=== PATIENT | female | born 1975 | race Caucasian/White ===

== ENCOUNTER 2018-12-15 20:11 | Outpatient (REF) | payer OTHER, SELFPAY ==
[2018-12-19 15:47] LABS: Chlamydia Result Negative; GC Result Negative; Specimen Description URINE
[2018-12-19 16:29] LABS: HIV-1/2 Ag & Ab Screen Negative (NEGAT)
== END 2018-12-15 20:31 ==
LOC: NCHCN 20:11
PROVIDERS: PCP Nurse Practitioner Family; Visit Provider Registered Nurse
DX: Z11.4 Encounter for screening for human immunodeficiency virus [HIV] (principal); Z11.3 Encounter for screening for infections with a predominantly sexual mode of transmission
CPT/HCPCS: 87389; 87491; 87591

== ENCOUNTER 2019-10-30 15:15 | Outpatient (REF) | payer OTHER, SELFPAY ==
[2019-11-02 13:37] LABS: Patient Race White; SARS-CoV-2 RNA Undetected (Undetected); SARS-CoV-2 Specimen Source Nasopharynx
== END 2019-10-30 15:35 ==
LOC: NCHCN 15:15
PROVIDERS: PCP Nurse Practitioner Family; Visit Provider Registered Nurse
DX: R05 Cough (principal)
CPT/HCPCS: U0003

== ENCOUNTER 2019-12-21 22:15 | Outpatient (REF) | payer OTHER, SELFPAY ==
[2019-12-21 21:18] LABS: Bacteria Few HPF (Negative); C & S Indicated? C&S Done As Ordered; Casts 5-10 Hyaline LPF (Negative); Crystals Negative HPF (Negative); Epithelial Cells Many HPF (Negative); Mucus Heavy (Negative); RBC 0-2 HPF (0-2); WBC 0-2 HPF (0-5)
[2019-12-21 21:29] LABS: Abs Immature Grans 0.02 10^3/uL (0.0-0.06); Absolute Basophil Count 0.05 10^3/uL (0.0-0.2); Absolute Eosinophil Count 0.11 10^3/uL (0.0-0.7); Absolute Lymphocyte Count 2.75 10^3/uL (1.2-3.4); Absolute Monocyte Count 0.62 10^3/uL (0.1-0.8); Absolute Neutrophil Count 5.15 10^3/uL (1.2-6.7); Basophils % 0.6; Eosinophils % 1.3; HCT 39.8 % (36.0-46.0); HGB 13.4 g/dL (11.2-15.7); Immature Grans % 0.2; Lymphocytes % 31.6; MCH 29.8 pg (27.0-33.0); MCHC 33.7 % (32.0-36.0); MCV 88.4 fL (80-95); MPV 9.4 fL (8.0-11.0); Monocytes % 7.1; Neutrophils % 59.2; Nucleated RBC 0 %; Platelet Count 389 10^3/uL (130-400); RDW 12.9 % (11.7-14.6); RDW-SD 42.4 fL
[2019-12-21 22:01] LABS: ALT 18 U/L (14-59); AST 16 U/L (15-37); Albumin 4.3 g/dL (3.4-5.0); Alkaline Phosphatase 44 U/L (46-116); Anion Gap 8.5 mmol/L (3-11); BUN 19 mg/dL (7-18); Bilirubin, Total 0.3 mg/dL (0.2-1.0); CO2 26.5 mmol/L (21.0-32.0); CREATININE 0.87 mg/dL (0.55-1.02); Calcium 9.1 mg/dL (8.5-10.1); Chloride 103 mmol/L (98-107); Glucose 76 mg/dL (74-106); Sodium 138 mmol/L (136-145); TSH (W/Ref FT4) 0.74 uIU/mL (0.36-3.74); Total Protein 7.2 g/dL (6.4-8.2)
== END 2019-12-21 22:35 ==
LOC: NCHCN 22:15
PROVIDERS: PCP Nurse Practitioner Family; Visit Provider Nurse Practitioner Family
DX: K59.00 Constipation, unspecified (principal); R10.9 Unspecified abdominal pain
CPT/HCPCS: 80053; 81015; 84443; 85025; 87086

== ENCOUNTER 2021-01-22 12:00 | Outpatient (REF) | payer OTHER, SELFPAY ==
[2021-01-24 09:56] LABS: HIV-1/2 Ag & Ab Screen Negative (Negative)
[2021-01-26 16:07] LABS: Chlamydia Result Negative (Negative); GC Result Negative (Negative)
== END 2021-01-22 12:01 | disposition home or self-care (01) ==
LOC: LBN 12:00
PROVIDERS: PCP Nurse Practitioner Family; Visit Provider Registered Nurse
DX: Z11.3 Encounter for screening for infections with a predominantly sexual mode of transmission (principal); Z11.4 Encounter for screening for human immunodeficiency virus [HIV]
CPT/HCPCS: 87389; 87491; 87591

== ENCOUNTER 2022-01-30 15:48 | Outpatient (REF) | payer BC, SELFPAY ==
[2022-01-30 21:15] LABS: BUN 15 mg/dL (7-18); CREATININE 0.8 mg/dL (0.55-1.02); Calcium 9.4 mg/dL (8.5-10.1); Calculated LDL 96 mg/dL (<100); Chloride 101 mmol/L (98-107); Cholesterol 191 mg/dL (<200); Estimated GFR 90.83 (mL/min/1.73m2); Glucose 78 mg/dL (74-106); HDL Cholesterol 76 mg/dL (40-60); Potassium 3.8 mmol/L (3.5-5.1); Sodium 138 mmol/L (136-145); Triglyceride 97 mg/dL (<150)
[2022-02-02 10:27] LABS: Hepatitis C Ab w Rflx HCV PCR Negative (Negative)
[2022-02-02 13:52] LABS: Chlamydia Result Negative (Negative); GC Result Negative (Negative)
== END 2022-01-30 15:49 | disposition home or self-care (01) ==
LOC: NCHCN 15:48
PROVIDERS: PCP Nurse Practitioner Family; Visit Provider Registered Nurse
DX: Z00.00 Encounter for general adult medical examination without abnormal findings (principal); E66.3 Overweight; Z11.3 Encounter for screening for infections with a predominantly sexual mode of transmission; Z13.220 Encounter for screening for lipoid disorders; Z11.59 Encounter for screening for other viral diseases
CPT/HCPCS: 80048; 80061; 86803; 87491; 87591

== ENCOUNTER 2024-02-27 09:47 | Emergency (ER) | payer OTHER, SELFPAY ==
[2024-02-27 09:56] VITALS: BP 135/80; PULSE 79; RESP 16; TEMP 36.8; O2SAT 98
--- NOTE | 2024-02-27 10:02 | ED.GENADUL_ITS ---
Discharge Plan Disposition Patient Disposition: Home Condition: Good Discharge Details Clinical Impression: Finger laceration Primary Care Provider: Lisa Collazo ED Provider: Nelsy Pa Home Meds and New Rx's Prescriptions: No Action No Known Home Meds Discharge Instructions Instructions: Laceration Repair With Stitches ED Additional Instructions: Your laceration was cleansed and closed with sutures. As it is over the joints, I am concerned that if you flex the finger too much you may cause these to pop or tear. Please continue with the splint after removing the bulky dressing tomorrow. You may wash with running water and soap but please avoid soaking or long submersion's as this can increase your risk of infection. Please monitor for wounds for signs of infection including redness, warmth, drainage, increased pain, fever/chills. If you develop these or other new/worsening symptoms please seek care urgently once again. Tylenol and ibuprofen as needed for discomfort. Please have the wound reevaluated in 1 week for suture removal. You may have this completed here or with your primary care if you call and schedule appointment. Tetanus was updated here today. Referrals: Lisa Collazo [Primary Care Provider] - Discharge Data Discharge Date/Time-TO BE ENTERED AT DEPARTURE: 02/27/24 11:07 HPI General Date/Time Provider Initiated Documentation: 02/27/24 09:57 . Limitations to Documentation: no limitations . Information obtained by: patient, family () and RN notes reviewed . H istory of Present Illness 48 year old F presents to the emergency department with the chief complaint of laceration right middle finger, described as moderate, Quality is described as aching, Patient reports no radiation. Patient started experiencing this minute(s) and it has been constant. Immobilization improves symptom(s), Movement worsens symptoms . Patient notes no other symptoms.. Patient did receive the following treatments prior to arrival, none Related Data Home Medications ?Medication ?Instructions ?Recorded ?Confirmed Unknown [No Known Home Meds] 02/27/24 02/27/24 Allergies Allergy/AdvReac Type Severity Reaction Status Date / Time iodine Allergy Intermediate Skin Rash Unverified 02/27/24 09:58 codeine AdvReac Severe Cardiac Unverified 02/27/24 09:58 Dysrythmia fentanyl AdvReac extreme Unverified 02/27/24 09:58 vomiting, paresthesia hydromorphone HCl (From AdvReac extreme Unverified 02/27/24 09:58 Dilaudid) vomiting,paresthesia General Stated Complaint: Laceration CARLA: 4 Review of Systems Constitutional Constitutional: Reports as per HPI, Denies chills and Denies fever(s) Musculoskeletal Musculoskeletal: Reports as per HPI Integumentary/Breasts Skin/Breast: Reports as per HPI Neurologic Neurologic: Reports as per HPI, Denies sensory deficit and Denies paresthesias Exam Const General: cooperative, healthy appearing, comfortable, no acute distress and well developed Nutritional Appearance: average body habitus and well nourished Orientation: alert and awake Resp Effort & Inspection: normal respiratory effort, able to speak in complete sentences and no respiratory distress Cardio Rate: regular rate Rhythm: regular rhythm Skin Trauma: laceration (right middle finger) Neuro General: patient alert and patient awake Cognition: normal cognition Speech: speech normal Sensory Exam: no sensory deficits noted Extrem Hand/finger images: 2 1. Patient has a flap laceration. While fairly deep laceration, no tenderness or bony abnormalities or involvement with the wound. Patient has intact capillary refill. Intact sensation. 2+ distal pulses. No wounds elsewhere. While she does have some discomfort with range of motion, no loss of range of motion. Patient is able to extend against resistance at both the PIP and DIP joints. Course Vital Signs Vital signs: Vital Signs Temperature 36.8 C 02/27/24 09:56 Pulse 79 02/27/24 09:56 Respiratory Rate 16 02/27/24 09:56 Blood Pressure 135/80 02/27/24 09:56 Pulse Oximetry 98 02/27/24 09:56 Temperature 36.8 C 02/27/24 09:56 Pulse 79 02/27/24 09:56 Respiratory Rate 16 02/27/24 09:56 Blood Pressure 135/80 02/27/24 09:56 Pulse Oximetry 98 02/27/24 09:56 Oxygen Delivery Method Room Air 02/27/24 09:56 Oxygen Flow Rate 0 02/27/24 09:56 Pain Level 0 02/27/24 09:56 Procedure Laceration Laceration 1: Date of Procedure: 02/27/24 Time of procedure: 10:51 Provider that performed the procedure: Nelsy Roberson Time Out Performed: Yes Patient Consented: Verbally Site: hand Side (If applicable): right Description: flap Depth: simple, single layer Local anesthetic: Lidocaine 1% Amount of anesthesia used (mL): 9 Pre-repair:: wound explored, irrigated extensively and deep structures intact Skin layer closed with: nylon Size (cm): 5-0 Number of sutures:: 7 Technique: horizontal mattress and simple, interrupted Complications: None Medical Decision Making Patient is a pleasant 48-year-old [id number] female presenting today with chief complaint of laceration to the right middle finger. 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 States that this digit is intermittently numb and tingly associated with remote chronic injury from crush digit about 10 years ago. States that the sensation seems to be at her baseline with no worsening of this. Believes that her tetanus is due either this year or next year, will update today. Denies other injury at the time of the incident. On exam, patient has a flap laceration extending from the PIP to DIP on the dorsal side of the right index finger. She is able to flex and extend against resistance. Sensation seems to be intact. Intact capillary refill. Believe the patient will require sutures, I discussed the risk and benefits of a digital nerve block. Also discussed risk benefits and alternatives of suture closure, patient voices getting and wished to proceed. Please see procedure note. Patient tolerated this well. Wound was cleansed using sterile standard sterile technique. No foreign body or debris was appreciated. Wound was closed using simple interrupted and horizontal mattress stitches. She tolerated this well with a digital block on board. We discussed continued wound care. Bulky dressing was set in place over bacitracin. Do not see indication at this point for antibiotics. She will keep the current dressing on for the next 24 hours and then will apply Band-Aid and splint which was also provided for the patient. Strict return precautions were discussed, particular signs symptoms of infection. Given the patient's distance from the hospital, she may come back here for suture removal or alternatively follow-up with primary care which is more conveniently located. We discussed activity she should avoid such as soaking, I did encourage washing with running water and soap. All of her questions and concerns were addressed and patient is in agreement this plan. Tetanus was updated today. This documentation was generated using [employer] system, please disregard any oddities of phrase or misspellings. Quality:SDOH Health Related Social Needs: 2 No Data to Display PFSH All Active Problems (Updated 02/27/24 @ 10:54 by MILTON De La O) Finger laceration (Acute) Left lower quadrant pain (Acute) Surgical History (Updated 12/01/17 @ 14:34 by [employer] [place]) Ligation of fallopian tube Colonoscopy - IV Sedation (10/05/14) DR.TERRY EDMONDS Social History Smoking/Tobacco Use Status: Current every day Tobacco Type: cigarettes Smoking risk assessment performed?: Yes Alcohol Intake: current Alcohol Intake frequency: a few times a month Drug use: Never Substance use type: does not use Do you feel safe at home: Yes Do you feel safe in your relationship?: Yes
[2024-02-27] MEDS: Diph,Pertuss(Acell),Tet Vac/Pf 0.5 ML SYR IM (10:49)
[2024-02-27] MEDS: Lidocaine 1% Pres-Free 5 ML VIAL (10:51)
== END 2024-02-27 11:07 | disposition home or self-care (01) ==
LOC: ER 12:29
PROVIDERS: Emergency Provider Physician Assistant; PCP Nurse Practitioner Family
DX: S61.212A Laceration without foreign body of right middle finger without damage to nail, initial encounter (principal); Z23 Encounter for immunization; F17.210 Nicotine dependence, cigarettes, uncomplicated; W27.8XXA Contact with other nonpowered hand tool, initial encounter; Y93.G3 Activity, cooking and baking; Y92.010 Kitchen of single-family (private) house as the place of occurrence of the external cause
CPT/HCPCS: 12001; 90471; 90715; 99283; J2003

== ENCOUNTER 2024-09-13 09:37 | Outpatient (CLI) | payer OTHER, SELFPAY ==
[2024-09-13 09:59] LABS: Abs Immature Grans 0.02 10^3/uL (0.0-0.06); HCT 39.8 % (36.0-46.0); HGB 13.3 g/dL (11.2-15.7); Immature Grans % 0.3 %; MCH 29.5 pg (27.0-33.0); MCHC 33.4 % (32.0-36.0); MCV 88 fL (80-95); MPV 9.0 fL (8.0-11.0); Platelet Count 332 10^3/uL (130-400); RBC 4.51 10^6/uL (3.93-5.22); RDW 12.9 % (11.7-14.6); RDW-SD 41.9 fL; WBC 5.99 10^3/uL (4.4-10.8)
[2024-09-13 10:02] LABS: ESR 3 mm/hr (0-30)
[2024-09-13 10:54] LABS: ALT 23 U/L (14-59); AST 14 U/L (15-37); Albumin 3.9 g/dL (3.4-5.0); Alkaline Phosphatase 58 U/L (46-116); Anion Gap 5.7 mmol/L (3-11); BUN 11 mg/dL (7-18); Bilirubin, Total 0.4 mg/dL (0.2-1.0); CO2 31.3 mmol/L (21.0-32.0); Calcium 9.1 mg/dL (8.5-10.1); Chloride 104 mmol/L (98-107); Estimated GFR 89.15 (mL/min/1.73m2); Glucose 94 mg/dL (74-106); Potassium 4.0 mmol/L (3.5-5.1); Sodium 141 mmol/L (136-145); Total Protein 7.2 g/dL (6.4-8.2)
[2024-09-13 10:55] LABS: C-Reactive Protein < 0.50 mg/dL (<or=0.5)
== END 2024-09-13 09:38 | disposition home or self-care (01) ==
LOC: LBO 09:37
PROVIDERS: PCP Family Medicine; Visit Provider Surgery
DX: K92.0 Hematemesis (principal)
CPT/HCPCS: 36415; 80053; 82784; 83516; 85652; 85025; 86140

== ENCOUNTER 2024-09-13 10:33 | Outpatient (CLI) | payer OTHER, SELFPAY ==
--- NOTE | 2024-09-13 10:30 | RT.EKG_ITS ---
APPROVED REPORT Exam: Resting ECG Reason for Exam: chest discomfort Patient Location: O HR:66 bpm ECG Measurements Heart Rate 66 AXIS UT 170 P 40 QRSd 94 QRS -6 QT 407 T 29 QTc 427 Conclusion Sinus rhythm...normal P axis, V-rate 50- 99 Low voltage, precordial leads...precordial leads <1.0mV Otherwise normal ECG
== END 2024-09-13 10:34 | disposition home or self-care (01) ==
LOC: DI.CARD 10:33
PROVIDERS: PCP Family Medicine; Visit Provider Registered Nurse
DX: R07.89 Other chest pain (principal)
CPT/HCPCS: 93010

== ENCOUNTER 2024-09-18 01:09 | Outpatient (CLI) | payer OTHER, SELFPAY ==
--- NOTE | 2024-09-18 05:45 | ETT_ITS ---
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 Rest Stress HR Resting HR Supine: 61 bpm Max Heart Rate (APMHR): 169 bpm Resting HR Standin bpm Target HR (85% APMHR): 144 bpm Max HR Achieved: 158 bpm % of APMHR: 93 Recovery HR: 88 bpm HR response to stress: Normal HR response to stress BP Resting BP Supine: 130/88 mmHg Resting BP Standin/90 mmHg Max BP: 160/90 mmHg Recovery BP: 120/70 mmHg BP response to stress: Normal blood pressure response to stress. ECG Resting ECG: Sinus Rhythm Ectopy: None Stress ECG: Sinus Tachycardia ST Change: No significant ST segment changes noted Arrhythmia: None Recovery ECG: Sinus Rhythm Recovery ST Change: No significant ST segment changes noted Recovery Arrhythmia: Rare PAC Clinical Reason for Termination: Leg fatigue, patient request to stop Stress Symptoms: Leg Fatigue Exercise duration: 05 min42 sec Highest Stage Reached: Stage 2: 2.5 mph at 12% grade. Exercise capacity: 7.05 METs Angina Score: None Negrete Treadmill Score: 5.2 Rate Pressure Product: [id number] Stress ECG Conclusion 1. Resting electrocardiogram was normal 2. Patient exercised on the Rick protocol and completed workload of 7 METS 3. Normal heart rate and blood pressure response to exercise. The patient achieved 93% of maximal predicted heart rate for age 4. There was no electrocardiographic evidence of myocardial ischemia 5. There were no significant dysrhythmias Negrete Treadmill Score is 5.2 which is Low risk. Stress Test Summary STAGE Time (mins) Speed (mph) Grade (%) HR BP SpO2 SYMPTOMS METS Supine 61 130/88 97% Standing 72 130/90 1 3 1.7 10 130 150/88 98% 4.5 2 6 2.5 12 156 160/90 98% Leg fatigue 7 3 9 3.4 14 156 10 1 min recovery 129 158/80 98% 3 min recovery 90 128/72 98% 6 min recovery 88 120/70 All symptoms resolved. Patient c/o leg fatigue during test. Treadmill stopped per patient request due to leg fatigue. All symptoms resolved at test end. Patient left ambulatory in no apparent distress.
--- NOTE | 2024-09-18 12:30 | DI.US_ITS ---
APPROVED REPORT EXAM: Comprehensive 2D, Doppler, and color-flow Echocardiogram Patient Location: Out-Patient Video System Repairer: Alka Putnam RDCS (AE) Indications: Chest pain, Preoperative exam Other Information Study Quality: Adequate Conclusion Normal left ventricular wall thickness and chamber size. Ejection fraction is 60%. Wall motion is normal Normal right ventricular size and function Both atria are normal in size There is no structural or hemodynamically significant valvular disease Minimally dilated ascending aorta measuring 3.4 cm Wall motion Left Ventricle The left ventricle is normal size. The left ventricular systolic function is normal. The left ventricular ejection fraction is within the normal range. There is normal left ventricular wall thickness. There is normal LV segmental wall motion. There is no ventricular septal defect visualized. LVEF is 60%. Right Ventricle The right ventricle is normal size. The right ventricular systolic function is normal. Atria The left atrium size is normal. The right atrium size is normal. The interatrial septum is intact with no evidence for an atrial septal defect. Aortic Valve The aortic valve is normal in structure. Aortic valve is trileaflet. There is no aortic valvular stenosis. No aortic regurgitation is present. Mitral Valve The mitral valve is normal in structure. No evidence of mitral valve stenosis. Trace mitral regurgitation. Tricuspid Valve The tricuspid valve is normal in structure. There is no tricuspid valve stenosis. Mild tricuspid regurgitation. The RVSP is 23.9 mmHg. Pulmonic Valve The pulmonary valve is normal in structure. There is no pulmonic valvular stenosis. There is no pulmonic valvular regurgitation. Great Vessels The aortic root is normal in size. The ascending aorta is mildly dilated. Aortic arch is normal in caliber. IVC is normal in size and collapses >50% with inspiration. Pericardium There is no pericardial effusion. 2D Dimensions IVSD d PLAX 0.72 cm F: 0.6-1.0 Ao Root d 3.20 cm F: 2.7 - 3.3 LVPW d PLAX 0.70 cm F: 0.6 - 1.0 Ao Asc Diam d 3.40 cm F: 2.3 - 3.1 LVID d PLAX 4.50 cm F: 3.8 - 5.2 LVDs 3.10 cm F: 2.2 - 3.5 LV EF Teichholz 59.2 % FS 31.22 % LV EDV (Teich) 91.6 mL LV ESV (Teich) 37.4 mL M-Mode TAPSE 2.14 cm (M/F) >1.7 Auto EF LV EDV A4C 98.9 mL LV EDV A2C 100.3 mL LV EDV BP 99.9 mL LV ESV A4C 40.8 mL LV ESV A2C 41.3 mL LV ESV BP 39.9 mL LVEF(%) A4C 58.7 % LVEF(%) A2C 58.9 % LVEF(%) BP 60.1 % LV SV A4C 58.1 ml LV SV A2C 59.0 ml LV SV BP 60.0 ml LV CO A4C 3.5 L/min LV CO A2C 3.3 L/min LV CO BP 3.4 L/min HR A4C 60.51 BPM HR A2C 55.97 BPM LV EDV Index (BP) LA Volume LA Length A4C 5.0 cm LA Length A2C 5.2 cm LA Area A4C s 18.74 cm2 LA Area A2C s 17.02 cm2 LA Vol A4C A-L 60.07 mL LA Vol A2C A-L 47.71 mL LA Vol Biplane A-L 54.6 mL LA Vol/BSA A4C A-L LA Vol/BSA A2C A-L LA Vol/BSA BP A-L 29.6 mL/m2 LA Vol A4C MOD 54.5 mL LA Vol A2C MOD 43.5 mL LA Vol BP MOD 49.5 mL RA Volume RA Area A4C 11.5 cm2 RA ESV A4C (A-L) 24.9mL RA Vol/BSA A4C A-L RA Length A4C 4.5 cm RA ESV A4C (MOD) 25.1mL LV Diastology MV E' medial 0.118 (>0.07 m/s) MV E Vmax 0.80 (0.4-1.3 m/s) MV E/E' MED 6.77 (<14) MV A Vmax 0.60 (0.4-1.3 m/s) MV E' lateral 0.128 (>0.1 m/s) E/A Ratio 1.3 MV E/E' LAT 6.26 (<14) MV E' Average 0.123 m/s MV E/E'(average) 6.50 Aortic Valve AoV Vmax 1.50 m/s LVOT Vmax 1.18 m/s AoV Peak Grad 9.0 mmHg LVOT Peak Grad 5.5 mmHg AoV Area (Vmax) 2.35 cm2 LVOT VTI 0.291 m AoV VTI 0.351 m LVOT Mean Grad 3.0 mmHg AoV Mean Jermaine. 1.01 m/s LVOT SV 87.03 mL AoV Mean Grad 4.7 mmHg LVOT Diam s 1.95 cm AoV Area (VTI) 2.48 cm2 AV Regurg Peak Gr. 8.97 mmHg Velocity Ratio 0.79 Mitral Valve MV DT 217 (160-240 msec) MV Vmax TIPS 0.84 m/s MV Mean Grad 1.1 (<2mmHg) MV VTI 0.279 m Pulmonary Valve PV Vmax 1.12 (0.5-1.5 m/s) RVOT Vmax 0.69 m/s PV Peak Grad 5.1 mmHg RVOT Peak Gr. 1.9 mmHg PV Mean Jermaine 0.74 m/s RVOT VTI 0.177 m PV Mean Grad 2.6 mmHg RVOT Mean Gr. 1.0 mmHg Tricuspid Valve RA Pressure 3.00 mmHg TR Vmax 2.28 m/s TV S' 0.14 m/s TR Peak Grad 20.8 mmHg RVSP (TR) 23.9 mmHg
== END 2024-09-18 01:29 ==
PROVIDERS: PCP Family Medicine; Visit Provider Internal Medicine Cardiovascular Disease
DX: R07.9 Chest pain, unspecified (principal)
CPT/HCPCS: 93017; 93306

== ENCOUNTER 2024-10-02 08:46 | Day surgery (SDC) | payer OTHER, SELFPAY ==
[2024-10-02 09:02] VITALS: BP 121/68; PULSE 65; RESP 20; TEMP 36.7; O2SAT 96
[2024-10-02] MEDS: Lactated Ringers 1,000 ML 80 ML IV (09:20)
--- NOTE | 2024-10-02 09:35 | ANES.PREOP_ITS ---
General Info Date of Service Date Performed: 10/02/24 Height: 5 ft 5 in Weight: 72.9 kg Body Mass Index (BMI): 26.7 Surgical Procedure: Operation Date: 10/02/24 10:05 Proposed Procedure Side Surgeon p Gastroscopy Zulma Torrez MD Meds Allergies and Home Medications Allergies Allergy/AdvReac Type Severity Reaction Status Date / Time iodine Allergy Intermediate Skin Rash Unverified 10/02/24 08:57 povidone-iodine (From Allergy Unknown Unknown Verified 10/02/24 08:57 Betadine) phenytoin (From Dilantin) Allergy Anaphylaxis Verified 10/02/24 08:57 codeine AdvReac Severe Cardiac Unverified 10/02/24 08:57 Dysrythmia fentanyl AdvReac extreme Unverified 10/02/24 08:57 vomiting, paresthesia hydromorphone HCl (From AdvReac extreme Unverified 10/02/24 08:57 Dilaudid) vomiting,paresthesia Home Medication ?Medication ?Instructions ?Recorded famotidine 20 mg tablet 20 mg PO BID 08/31/24 pantoprazole 40 mg tablet,delayed 40 mg PO DAILY #30 t abs 09/13/24 release ondansetron HCl 4 mg tablet 4 mg PO TID PRN 09/29/24 Current Visit Medications: Current Medications Generic Name Dose Route Start Last Admin Trade Name Freq PRN Reason Stop Dose Admin Ringer's Solution 1,000 mls @ 80 mls/hr 10/02/24 06:00 10/02/24 09:20 IV 10/02/24 23:59 80 mls/hr INFUSION YASMIN Administration IV Miscellaneous Supplies 1 each 10/02/24 06:00 Iv Access IV 10/02/24 23:59 DIRECTED YASMIN Sodium Biphosphate/Sodium Phosphate 133 ml 10/02/24 06:00 Na Phosphate Enema-Adult 133 Ml Btl NH 10/02/24 23:59 DIRECTED PRN Sodium Chloride 0 ml 10/02/24 06:00 Normal Saline Flush 10 Ml Syr IV 10/02/24 23:59 PRN PRN Sodium Chloride 0 ml 10/02/24 06:00 Normal Saline 10 Ml Vial IJ 10/02/24 23:59 DIRECTED PRN Sterile Water 0 ml 10/02/24 06:00 Water,Injection,Sterile 10 Ml Vial IJ 10/02/24 23:59 DIRECTED PRN PFSH Active Problems Active Problems: Problem Status Onset Code Epigastric pain Acute R10.13 Chronic nausea Acute R11.0 Blood in stool Acute K92.1 Hematemesis Acute K92.0 Overweight Acute E66.3 Recurrent vomiting Acute R11.10 Left lower quadrant pain Acute R10.32 Medical History Medical History History of colon polyps (~2019) Neck pain IBS (irritable bowel syndrome) Allergic rhinitis Benign paroxysmal positional vertigo 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 PTSD (post-traumatic stress disorder) Nicotine dependence 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 Generalized anxiety disorder Major depression Surgical History Surgical History History of partial hysterectomy Ligation of fallopian tube Colonoscopy - IV Sedation (10/05/14) DR.TERRY EDMONDS Tobacco Smoking/Tobacco Use Status: Former Tobacco Use (quit 08/10/24) Alcohol Alcohol Intake: current Alcohol intake frequency: a few times a month Substance Use Substance use: Never Substance use type: does not use Vital Signs and Lab Results Vital Signs Most Recent Vital Signs in EMR: Most Recent Vital Signs Temp Pulse Resp BP Pulse Ox 36.7 C 65 20 121/68 96 10/02/24 09:02 10/02/24 09:02 10/02/24 09:02 10/02/24 09:02 10/02/24 09:02 Lab Results Complete Blood Count: WBC, (4.4-10.8) 5.99 10^3/uL 09/13/24, 09:34 RBC, (3.93-5.22) 4.51 10^6/uL 09/13/24, 09:34 Hgb, (11.2-15.7) 13.3 g/dL 09/13/24, 09:34 Hct, (36.0-46.0) 39.8 % 09/13/24, 09:34 Plt Count, (130-400) 332 10^3/uL 09/13/24, 09:34 Complete Metabolic Panel: Sodium, (136-145) 141 mmol/L 09/13/24, 09:34 Potassium, (3.5-5.1) 4.0 mmol/L 09/13/24, 09:34 Chloride, (98-107) 104 mmol/L 09/13/24, 09:34 Carbon Dioxide, (21.0-32.0) 31.3 mmol/L 09/13/24, 09 :34 BUN, (7-18) 11 mg/dL 09/13/24, 09:34 Creatinine, (0.55-1.02) 0.8 mg/dL 09/13/24, 09:34 Est GFR (CKD-EPI 2020), (mL/min/1.73m2) 89.15 09/13/24, 09:34 Calcium, (8.5-10.1) 9.1 mg/dL 09/13/24, :34 Albumin, (3.4-5.0) 3.9 g/dL 09/13/24, :34 Glucose, (74-106) 94 mg/dL 09/13/24, 09:34 C-Reactive Protein, (<or=0.5) < 0.50 mg/dL 09/13/24, 09:34 Liver Function Panel: ALT, (14-59) 23 U/L 09/13/24, 09:34 AST, (15-37) 14 U/L L 09/13/24, 09:34 Imaging and Studies Imaging and Studies Study information below may be from another EMR and interpreted by another provider. Please see original notes in EMR for more complete details. EKG Summary: 09/13/24 Conclusion Sinus rhythm...normal P axis, V-rate 50- 99 Low voltage, precordial leads...precordial leads <1.0mV Otherwise normal ECG Stress Test Summary: 09/18/24 Stress ECG Conclusion 1. Resting electrocardiogram was normal 2. Patient exercised on the Rick protocol and completed workload of 7 METS 3. Normal heart rate and blood pressure response to exercise. The patient achieved 93% of maximal predicted heart rate for age 4. There was no electrocardiographic evidence of myocardial ischemia 5. There were no significant dysrhythmias Negrete Treadmill Score is 5.2 which is Low risk. Echocardiogram Summary: 09/18/24 Conclusion Normal left ventricular wall thickness and chamber size. Ejection fraction is 60%. Wall motion is normal Normal right ventricular size and function Both atria are normal in size There is no structural or hemodynamically significant valvular disease Minimally dilated ascending aorta measuring 3.4 cm Anesthesia Assessment and Plan Anesthesia History Personal History: No History of Anesthesia Complications Family History: No Family History of Anesthesia Complications Exercise Tolerance Exercise Tolerance: Metabolic Equivalents>4 Pertinent Negatives Pertinent Negatives: No Major Cardiovascular Symptoms or Complaints (Recent chest pain with negative cardiac workup), No Major Pulmonary Symptoms or Complaints and No History of CVA/TIA Cardiac & Pulmonary Exam Cardiac Exam: Normal S1/S2 Heart Sounds Pulmonary Exam: Clear Bilateral Breath Sounds Cardiac and Pulmonary Comment:: Quit smoking approx 2 months ago Implantable Cardiac Device Does patient have a Pacemaker or an ICD?: No Airway Exam Known Difficult Airway: No Mallampati Class: 2 Mouth Opening: Normal (> 3cm) Thyromental Distance: Greater than 3 cm Neck Range of Motion: Full ROM Neck Circumference: Normal Teeth Condition: Normal Dentition ASA Classification ASA Score: ASA 2 Emergency Case?: No NPO Status NPO Status: NPO Clears >2 hours, Solids >8 hours Status Status: History of Hysterectomy Anesthesia Plan Resuscitation Status: Full Code Anesthesia Technique: General Anesthesia Airway Planned: Natural Airway Monitors Used: Standard Monitors
[2024-10-02 09:59] VITALS: BMI 26.7
--- NOTE | 2024-10-02 10:05 | BOWEL_PTH ---
PATIENT: Kehinde Pringle LOC: [facility] U#:[id number] AGE/SX: 49/F ROOM: RE10/02/[address]: Zulma Torrez MD : 1975 BED: DIS: 10/02/2024 SPEC #: [id number] RECD: 10/02/24 12:39 STATUS: DANIEL REMaki #: [id number] KEVEN: 10/02/24 10:[address]: Zulma Torrez DEPT: Surgical Specimen RECD BY: Marilee De Jesus Tissues: 1 - BIOPSY BOWEL 2 - STOMACH BIOPSY Procedures: GROSS AND MICRO LEVEL 4 Comments: [id number]
--- NOTE | 2024-10-02 10:08 | W.PM.DSUDISC ---
Date of service: 10/02/24 Discharge Plan Disposition Patient Disposition: Home Condition: Stable Discharge Details Attending Provider: Zulma Torrez Primary Care Provider: Shantel Holt Recommendations for Follow Up Recommended tests to be ordered by follow up provider: None for this visit, surgeon to follow up Home Meds and New Rx's Prescriptions: Continued pantoprazole 40 mg tablet,delayed release (DR/EC) 40 mg PO DAILY Qty: 30 2RF famotidine 20 mg tablet 20 mg PO BID ondansetron HCl 4 mg tablet 4 mg PO TID PRN Patient Comments: TAKE 1 TABLET ORAL NEEDED THREE TIMES A DAY FOR NAUSEA Discharge Instructions Additional Instructions: EGD today shows some mild irritation of the stomach lining without ulcer. No cause for bleeding seen. This irritation may have been more severe before I prescribed pantoprazole to you, and may ave been the source of the blood you vomited. It would not be expected to cause any major bleeding in its current state. Im not sure that mild irritation of the stomach would result in the discomfort and symptoms you feel regularly, so I would like to continue to pedroza down other leads. Your gallbladder is still a suspect. It does not have stones but I have ordered a test for us to see if it is working normally or if it is dysfunctional. The schedulers should call you to schedule this test. If you dont have it done before your follow up appointment with me it might be a good idea to push your follow up out a week or two to get it done before coming back to see me. That way we can review all labs and testing at once. I will notify you in writing of todays routine biopsy results. If there is an infection of the stomach with H pylori bacteria or something that needs attention, I will notify you by phone as well. We will plan to discuss results at length in office. Continue the pantprazole I gave you, you may also continue pepcid (famotidine) if you would like. See you at follow up. Activity:: Activity as Tolerated Shower/Bathe:: 24 hours Diet:: As Tolerated Discharge Orders Discharge Orders: Discharge Order (Routine); Ordered 10/02/24 Ordered By: Zulma Torrez Other Ambulatory Orders: NM hepatobiliary cck grp (Routine) Timeframe: 10 Day Facility: [facility] - Location: DIAGNOSTIC IMAGING Ordered By: Zulma Torrez DS: Diagnosis Discharge Diagnosis (1) Mild chronic gastritis: Status: Acute (2) Hematemesis: Status: Acute (3) Chronic nausea: Status: Acute
[2024-10-02 10:15] VITALS: BP 113/78; PULSE 68; RESP 16; TEMP 36.4; O2SAT 95
[2024-10-02 10:43] VITALS: BP 119/73; PULSE 58; RESP 18; TEMP 36.5; O2SAT 97
--- NOTE | 2024-10-02 10:51 | W.ANESPOSTOP ---
Postoperative Evaluation Date, Time and Location Date Performed: 10/02/24 Time Performed: 10:51 Patient Location: Day Surgery Unit Vital Signs Most Recent Imported Vital Signs: Most Recent Vital Signs Temp Pulse Resp BP Pulse Ox 36.5 C 58 L 18 119/73 97 10/02/24 10:43 10/02/24 10:43 10/02/24 10:43 10/02/24 10:43 10/02/24 10:43 Pain Score Most Recent Pain Score: Most Recent Pain Score Pain Level 0 10/02/24 09:02 Assessment Mental Status: Awake (Alert & Oriented to Patient Baseline) Airway and Respiratory Function: Patent airway with normal (patient baseline) respiratory exam Cardiovascular Function: Hemodynamically Stable Hydration Status: Adequately Hydrated Nausea & Vomiting: No Nausea or Vomiting Pain: Pt. Denies Any Pain Peripheral Nerve Block: Patient did not receive a nerve block
--- NOTE | 2024-10-02 13:16 | ENDO_ITS ---
Date of service: 10/02/24 Time of Service: 10:45 Endoscopy Report DATE OF PROCEDURE: 10/02/24 PRE-OP DIAGNOSIS: hematemesis, chronic nausea, epigastric pain POST-OP DIAGNOSIS: other (mild chronic gastritis) PROCEDURE: EGD with biopsy SURGEON: Zulma Torrez ANESTHESIA TYPE: General:No Airway ESTIMATED BLOOD LOSS: 2 PATHOLOGY: other (1. duodenum biopsy. 2. antrum biopsy. ) PROCEDURE DESCRIPTION: Lubricated endoscope was passed through a bite block into the second portion of the duodenum. The endoscope was withdrawn and the duodenum stomach and esophageal mucosa examined. The duodenum appeared normal. There is no inflammation or ulceration or erosion. The antrum appears mildly inflamed. The fundus appears normal with 2 benign 3 mm fundic gland polyps observed. The cardia appears normal and there is no evidence of hiatal hernia upon retroflexion. The distal esophagus is normal without inflammation, ulceration varices or candidiasis. The Z-line is regular and there is no evidence of Gallego's esophagus. Remainder of the esophagus appears normal Cold forceps biopsies obtained from the duodenum the antrum for microscopic evaluation for celiac sprue, H. pylori given symptoms. The upper digestive system was desufflated and the endoscope withdrawn. No complications. Assessment and plan: Mild gastritis only. No ulcer or major findings otherwise to explain symptoms. Possible that gastritis was more severe prior to initiation of pantoprazole. Casimiro acosta follow up biopsy results and notify patient of plan change if indicated. Continue PPI daily for 8-12 weeks total. Office follow up in 2-4 weeks. I have ordered pipida scan and would like that done prior to follow up.
== END 2024-10-02 10:58 | disposition home or self-care (01) ==
PROVIDERS: PCP Family Medicine; Visit Provider Surgery
PROC: 0DJ68ZZ Inspection of Stomach, Via Natural or Artificial Opening Endoscopic (ICD-10-PCS; CPT 43235; principal; 2024-10-02 10:00)
DX: R10.13 Epigastric pain (principal); K29.51 Unspecified chronic gastritis with bleeding; K92.0 Hematemesis; K31.89 Other diseases of stomach and duodenum
CPT/HCPCS: 43239; 88305; J2405; J2704

== ENCOUNTER 2024-10-11 01:06 | Outpatient (CLI) | payer OTHER, SELFPAY ==
--- NOTE | 2024-10-11 06:15 | DI.NM_ITS ---
Exam(s) NM HEPATOBILIARY CCK GRP EXAM: NM HEPATOBILIARY CCK GRP CLINICAL HISTORY: chronic nausea, abd/EPIGASTRIC PAIN,R10.13,R11.0. TECHNIQUE: Injected dose: 5 mCi Tc-99 mebrofenin Initial dynamic images: 60 minutes Post-Gallbladder fillin.2 mcg of CCK intravenously. Addition images: According to protocol. COMPARISON: US US ABDOMEN from 09/18/2024 FINDINGS: Normal hepatic transit time. Prompt excretion into the small bowel. Prompt excretion into the gallbladder. The gallbladder ejection fraction is 72 percent. This is within normal limits. (The normal gallbladder ejection fraction is greater than 40 percent). IMPRESSION: 1. Normal examination. Normal gallbladder ejection fraction of 72 percent. [facility] guidelines: Gallbladder visualization should be present by 3 hours. Delayed wdrybmr-oz-xlvyh transit beyond 60 min raises the suspicion for partial common bile duct (CBD) obstruction. Gallbladder ejection fraction <35% has a good correlation with acalculous disease (i.e., chronic acalculous cholecystitis, cystic duct syndrome, sphincter of Oddi disease).
[2024-10-11] MEDS: Sincalide 5 MCG VIAL 1.2 MCG IJ (10:59)
[2024-10-11] MEDS: Water,Injection,Sterile 10 ML VIAL IJ (11:00)
== END 2024-10-11 01:26 ==
LOC: DI 01:06
PROVIDERS: PCP Family Medicine; Visit Provider Surgery
DX: R11.0 Nausea (principal); R10.13 Epigastric pain
CPT/HCPCS: 78227; J2805

== ENCOUNTER 2024-11-06 06:03 | Day surgery (SDC) | payer OTHER, SELFPAY ==
[2024-11-06] VITALS (23 sets, daily range): BP systolic 103–160; BP diastolic 58–104; PULSE 45–75; RESP 11–21; TEMP 36–36.5; O2SAT 93–100; BMI 28.4
[2024-11-06] MEDS: Lactated Ringers 1,000 ML 80 ML IV (06:39)
--- NOTE | 2024-11-06 07:11 | ANES.PREOP_ITS ---
General Info Date of Service Date Performed: 11/06/24 Height: 5 ft 5.5 in Weight: 78.7 kg Body Mass Index (BMI): 28.4 Surgical Procedure: Operation Date: 11/06/24 07:40 Proposed Procedure Side Surgeon p Cholecystectomy Laparoscopic Zulma Torrez MD Meds Allergies and Home Medications Allergies Allergy/AdvReac Type Severity Reaction Status Date / Time iodine Allergy Intermediate Skin Rash Unverified 11/06/24 06:26 povidone-iodine (From Allergy Unknown Unknown Verified 11/06/24 06:26 Betadine) phenytoin (From Dilantin) Allergy Anaphylaxis Verified 11/06/24 06:26 codeine AdvReac Severe Cardiac Unverified 11/06/24 06:26 Dysrythmia fentanyl AdvReac extreme Unverified 11/06/24 06:26 vomiting, paresthesia hydromorphone HCl (From AdvReac extreme Unverified 11/06/24 06:26 Dilaudid) vomiting,paresthesia Home Medication ?Medication ?Instructions ?Recorded famotidine 20 mg tablet 20 mg PO BID 08/31/24 pantoprazole 40 mg tablet,delayed 40 mg PO DAILY #30 t abs 09/13/24 release ondansetron HCl 4 mg tablet 4 mg PO TID PRN 09/29/24 Current Visit Medications: Current Medications Generic Name Dose Route Start Last Admin Trade Name Freq PRN Reason Stop Dose Admin Ringer's Solution 1,000 mls @ 80 mls/hr 11/06/24 06:00 11/06/24 06:39 IV 11/06/24 23:59 80 mls/hr INFUSION YASMIN Administration Cefazolin Sodium/Dextrose 2 gm in 50 mls @ 100 mls/hr 11/06/24 06:00 Ancef Duplex IVPB 11/06/24 23:59 PREOP YASMIN IV Miscellaneous Supplies 1 each 11/06/24 06:00 Iv Access IV 11/06/24 23:59 DIRECTED YASMIN Sodium Chloride 0 ml 11/06/24 06:00 Normal Saline Flush 10 Ml Syr IV 11/06/24 23:59 PRN PRN Sodium Chloride 0 ml 11/06/24 06:00 Normal Saline 10 Ml Vial IJ 11/06/24 23:59 DIRECTED PRN Sterile Water 0 ml 11/06/24 06:00 Water,Injection,Sterile 10 Ml Vial IJ 11/06/24 23:59 DIRECTED PRN PFSH Active Problems Active Problems: Problem Status Onset Code Mild chronic gastritis Acute K29.50 Epigastric pain Acute R10.13 Chronic nausea Acute R11.0 Blood in stool Acute K92.1 Hematemesis Acute K92.0 Overweight Acute E66.3 Recurrent vomiting Acute R11.10 Left lower quadrant pain Acute R10.32 Medical History Medical History History of colon polyps (~2018) Neck pain IBS (irritable bowel syndrome) Allergic rhinitis Benign paroxysmal positional vertigo 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 PTSD (post-traumatic stress disorder) Nicotine dependence 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 Generalized anxiety disorder Major depression Surgical History Surgical History History of esophagogastroduodenoscopy (~10/02/24) History of partial hysterectomy Ligation of fallopian tube Colonoscopy - IV Sedation (10/05/14) DR.TERRY EDMONDS Tobacco Smoking/Tobacco Use Status: Former Tobacco Use Alcohol Alcohol Intake: current Alcohol intake frequency: a few times a month Substance Use Substance use: Never Substance use type: does not use Vital Signs and Lab Results Vital Signs Most Recent Vital Signs in EMR: Most Recent Vital Signs Temp Pulse Resp BP Pulse Ox 36.3 C L 70 16 112/72 96 11/06/24 06:07 11/06/24 06:07 11/06/24 06:07 11/06/24 06:07 11/06/24 06:07 Imaging and Studies Imaging and Studies Study information below may be from another EMR and interpreted by another provider. Please see original notes in EMR for more complete details. EKG Summary: 09/13/24 Conclusion Sinus rhythm...normal P axis, V-rate 50- 99 Low voltage, precordial leads...precordial leads <1.0mV Otherwise normal ECG Stress Test Summary: 09/18/24 Stress ECG Conclusion 1. Resting electrocardiogram was normal 2. Patient exercised on the Rick protocol and completed workload of 7 METS 3. Normal heart rate and blood pressure response to exercise. The patient achieved 93% of maximal predicted heart rate for age 4. There was no electrocardiographic evidence of myocardial ischemia 5. There were no significant dysrhythmias Negrete Treadmill Score is 5.2 which is Low risk. Echocardiogram Summary: 09/18/24 Conclusion Normal left ventricular wall thickness and chamber size. Ejection fraction is 60%. Wall motion is normal Normal right ventricular size and function Both atria are normal in size There is no structural or hemodynamically significant valvular disease Minimally dilated ascending aorta measuring 3.4 cm Anesthesia Assessment and Plan Anesthesia History Personal History: Other Family History: Other Exercise Tolerance Exercise Tolerance: Metabolic Equivalents>4 Pertinent Negatives Pertinent Negatives: No Symptoms of GERD, No Major Cardiovascular Symptoms or Complaints, No Major Pulmonary Symptoms or Complaints and No History of CVA/TIA Cardiac & Pulmonary Exam Cardiac Exam: Normal S1/S2 Heart Sounds Pulmonary Exam: Clear Bilateral Breath Sounds Implantable Cardiac Device Does patient have a Pacemaker or an ICD?: No Airway Exam Known Difficult Airway: No Mallampati Class: 2 Mouth Opening: Normal (> 3cm) Thyromental Distance: Greater than 3 cm Neck Range of Motion: Full ROM Neck Circumference: Normal Teeth Condition: Normal Dentition ASA Classification ASA Score: ASA 2 Emergency Case?: No NPO Status NPO Status: NPO Clears >2 hours, Solids >8 hours Status Status: History of Hysterectomy Anesthesia Plan Resuscitation Status: Full Code Anesthesia Technique: General Anesthesia Airway Planned: Endotracheal Tube Monitors Used: Standard Monitors and SedLine
--- NOTE | 2024-11-06 07:30 | W.PM.DSUDISC ---
Date of service: 11/06/24 Discharge Plan Disposition Patient Disposition: Home Condition: Stable Discharge Details Attending Provider: Zulma Torrez Primary Care Provider: Shantel Holt Recommendations for Follow Up Recommended tests to be ordered by follow up provider: none Home Meds and New Rx's Prescriptions: New hydrocodone-acetaminophen 5-325 mg tablet 1 tab PO Q6H PRNQty: 10 0RF Continued pantoprazole 40 mg tablet,delayed release (DR/EC) 40 mg PO DAILY Qty: 30 2RF famotidine 20 mg tablet 20 mg PO BID ondansetron HCl 4 mg tablet 4 mg PO TID PRN Patient Comments: TAKE 1 TABLET ORAL NEEDED THREE TIMES A DAY FOR NAUSEA Discharge Instructions Additional Instructions: Additional Instructions: Shower in 48 hours. Wash gently over steri-strips with soapy hands, rinse, pat dry. Don't peel strips or submerge them under water. The longer they stay on, the nicer the scars will heal. Ok to walk, climb stairs, and resume normal activities of daily living. Do not lift/push/pull more than 20lb for 4 weeks. Diet as tolerated, allow your body to naturally make adjustments in the bile flow after surgery. Eat your normal diet. Loose stools may occur. We will discuss them at follow up if still present in 2 weeks. Call or return for fever or incisional problems. Activity:: as above Shower/Bathe:: 48 hours Diet:: As Tolerated Discharge Orders Discharge Orders: Discharge Order (Routine); Ordered 11/06/24 Ordered By: Zulma Torrez DS: Diagnosis Discharge Diagnosis (1) Biliary colic: Status: Acute
[2024-11-06] MEDS: ceFAZolin 2 GM/50 ML BAG IVPB (07:36)
--- NOTE | 2024-11-06 07:36 | ROE_ITS ---
Operative Note Operative Note PRE-OP DIAGNOSIS: biliary colic POST-OP DIAGNOSIS: same (biliary colic) PROCEDURE: Laparoscopic cholecystectomy SURGEON: Zulma Torrez UNEMPLOYMENT INSPECTOR: Ta Villa ANESTHESIA TYPE: Local By Surgeon and General LMA/ETT Refer to Anesthesia Record ESTIMATED BLOOD LOSS: 10 PATHOLOGY: other (gallbladder) COMPLICATIONS: None Patient's condition: stable Procedure Description: This is a 49-year-old patient who presented to the office with chronic nausea and epigastric pain. The evaluation gallbladder evaluation. She had severe reproduction of symptoms with pipida scan, and all other work up was unremarkable. Cholecystectomy was indicated. We discussed the procedure risks, benefits, alternatives, and expectations. All of the patient's questions were answered to their satisfaction. Informed consent was obtained and the patient was transferred to the operating room. The patient was placed supine on the operating table. SCDs were placed and all pressure points were padded appropriately. General anesthesia was induced. The abdomen was clipped prepped and draped in the usual sterile fashion. Timeout was performed. Local anesthetic was infiltrated underneath the umbilicus. An incision was made in the skin and the incision carried down to the umbilical stalk using cautery. The umbilical stalk was elevated using a Otto clamp and the fascia cleared of subcutaneous fat. An incision was made in the fascia, and a Josselin clamp was used to enter the peritoneum. A finger was used to ensure no structures were adhered to the anterior abdominal wall. A Florence trocar was introduced and the abdomen was insufflated to 15 mmHg. Initial laparoscopy confirmed no injury to the intra-abdominal structures. 3 additional 5 mm ports were placed in the upper abdomen under direct visuali zation. Local anesthetic was infiltrated at each port site. The patient's head was elevated and she was rotated toward the left. The gallbladder was elevated. The gallbladder dome was grasped and retracted cephalad. The infundibulum was grasped and retracted laterally and a dissection in Calot's triangle was pursued with a [place] dissector and a suction tool. 2 tubular structures were disse cted free and skeletonized. A critical view was obtained and the cystic duct and cystic artery were identified and confirmed. The cystic duct and cystic artery were clipped and transected with EndoShears. The gallbladder was then removed from the liver bed with cautery. It was placed into an Endo Catch bag and removed from the abdomen through the umbilicus. The liver bed was examined and hemostasis assured. The patient taken out of reverse Trendelenburg position. The 5 mm ports were removed and the abdomen was desufflated. The umbilical trocar was removed. The umbilical fascia was closed with an 0 Vicryl suture in a [id number] stitch. The remainder of the local anesthetic was infiltrated into the umbilical fascia. The incisions were all closed with interrupted 4-0 Monocryl sutures in subcuticular fashion. The incisions were all washed and dried and Steri-Strips applied. The patient tolerated the procedure well. The patient extubated in the operating room and transferred to the recovery room in stable condition. There were no complications Date of Procedure: 11/06/24
[2024-11-06] MEDS: Bupivacaine 0.5% Pres-Free W/EPI 30 ML VIAL (08:05)
--- NOTE | 2024-11-06 08:29 | GB_PTH ---
PATIENT: Kehinde Pringle LOC: [facility] U#:[id number] AGE/SX: 49/F ROOM: RE11/06/[address]: Zulma Torrez MD : 1975 BED: DIS: 11/06/2024 SPEC #: [id number] RECD: 11/06/24 12:42 STATUS: DANIEL PARTIDA #: [id number] KEVEN: 11/06/24 08:[address]: Zulma Torrez DEPT: Surgical Specimen RECD BY: Marilee De Jesus Tissues: 1 - GALLBLADDER Procedures: GROSS AND MICRO LEVEL 3 Comments: [id number]
[2024-11-06] MEDS: Droperidol 5 MG/2 ML VIAL 0.625 MG IVP (09:15)
--- NOTE | 2024-11-06 10:05 | W.ANESPOSTOP ---
Postoperative Evaluation Date, Time and Location Date Performed: 11/06/24 Time Performed: 10:06 Patient Location: Day Surgery Unit Vital Signs Most Recent Imported Vital Signs: Most Recent Vital Signs Temp Pulse Resp BP Pulse Ox 36.4 C L 53 L 16 133/83 98 11/06/24 09:50 11/06/24 09:50 11/06/24 09:50 11/06/24 09:50 11/06/24 09:50 Pain Score Most Recent Pain Score: Most Recent Pain Score Pain Level 6 11/06/24 09:34 Assessment Mental Status: Awake (Alert & Oriented to Patient Baseline) Airway and Respiratory Function: Patent airway with normal (patient baseline) respiratory exam Cardiovascular Function: Hemodynamically Stable Hydration Status: Adequately Hydrated Nausea & Vomiting: No Nausea or Vomiting Pain: Pain is tolerable per patient Peripheral Nerve Block: Patient did not receive a nerve block
== END 2024-11-06 10:33 | disposition home or self-care (01) ==
PROVIDERS: PCP Family Medicine; Visit Provider Surgery
PROC: 0FT44ZZ Resection of Gallbladder, Percutaneous Endoscopic Approach (ICD-10-PCS; CPT 47562; principal; 2024-11-06 07:30)
DX: K80.50 Calculus of bile duct without cholangitis or cholecystitis without obstruction (principal)
CPT/HCPCS: 47562; 88304; J0131; J0690; J1100; J1790; J1885; J2003; J2405; J2704; J3475

== ENCOUNTER 2025-02-09 14:06 | Outpatient (REF) | payer OTHER, SELFPAY ==
[2025-02-09 15:22] LABS: Cholesterol 195 mg/dL (<200); HDL Cholesterol 90 mg/dL (>or=50)
[2025-02-09 15:25] LABS: TSH (W/Ref FT4) 1.00 uIU/mL (0.55-4.78)
== END 2025-02-09 14:07 | disposition home or self-care (01) ==
LOC: NCHCN 14:06
PROVIDERS: PCP Family Medicine; Visit Provider Family Medicine
DX: Z13.220 Encounter for screening for lipoid disorders (principal); Z13.29 Encounter for screening for other suspected endocrine disorder
CPT/HCPCS: 80061; 84443